=== PATIENT | female | born 1980 | race Caucasian/White ===

== ENCOUNTER 2021-04-05 13:15 | Emergency (ER) | payer BC, SELFPAY ==
[2021-04-05] VITALS (101 sets, daily range): BP systolic 122–171; BP diastolic 63–108; PULSE 86–115; RESP 14–36; TEMP 37.3; O2SAT 93–99; BMI 41.5
--- NOTE | 2021-04-05 | DI.RAD.S_ITS ---
PROCEDURE: XR ANKLE LT 2V INDICATIONS: POST REDUCTION TECHNIQUE: 3 views of the ankle were acquired. COMPARISON: [facility], CR, XR ANKLE LT 2V, 04/05/2021, 16:09. FINDINGS: Bones: Comminuted distal fibular fracture shows improved alignment in overlying plaster cast. Soft tissues: No tibiotalar joint effusion. Achilles tendon appears normal. IMPRESSION: Comminuted distal fibular fracture shows improved alignment in plaster cast Dictated by: Logan Jovel M.D. on 04/05/2021 at 18:26 Approved by: Logan Jovel M.D. on 04/05/2021 at 18:27
--- NOTE | 2021-04-05 13:21 | ED.EXTPRO ---
HPI - Extremity Problem General Chief complaint: Extremity Injury, Lower Stated complaint: GLF, L lower leg deformity Time Seen by Provider: 04/05/21 13:20 History of Present Illness HPI Narrative: This is a 40-year-old female who comes to the emergency department with complaint of fall. Patient [place] [facility] [place] stepped on a rock and felt immediate pain and deformity. Patient denies any numbness or tingling but is very uncomfortable in the ankle with deformity. Patient denies any other injury. She denies any medical issues besides a history of hypertension. She states she is not good about taking her medication daily and for got a dose today. Patient denies any other major surgical history besides . She denies any allergies to medications. She had coffee and a race crispy treat this morning. She has not had anything else to eat or drink today. Patient was transported here via EMS. Related Data Previous Rx's Medication Instructions Recorded hydrocodone 5 mg-acetaminophen 325 1 tab PO Q6H PRN #14 tab 04/05/21 mg tablet Allergies Allergy/AdvReac Type Severity Reaction Status Date / Time No Known Drug Allergies Allergy Verified 04/05/21 13:23 Review of Systems Review of Systems ROS Unobtainable: All systems reviewed & are unremarkable except as noted in HPI and below Patient History Medical History (Updated 04/05/21 @ 19:12 by Isabela Cuevas DO) Hypertension Social History Smoking Status: Never smoker Exam Narrative Exam Narrative: GENERAL: Alert and oriented x three, female in [id number]-ag-[id number] distress. HEENT: Head normocephalic, atraumatic, EOMI, pupils reactive, face symmetric, moist mucous membranes NECK: Supple, full range of motion CARDIOVASCULAR: Regular rate and rhythm without murmurs, rubs or gallops. RESPIRATORY: Breath sounds equal bilaterally, no wheezes rales or rhonchi. ABDOMEN: Soft, nontender. Normoactive bowel sounds all 4 quadrants. No guarding or rebound, rigidity, no mass : No CVA tenderness EXTREMITIES: Normal range of motion, no clubbing or edema of the right leg. Patient's left leg she has normal range of motion of the hip and knee but has obvious deformity with rotation at the left ankle, patient also has ecchymoses present. No laceration or wounds appreciated. Patient does have pulses present bilaterally which are equal. She has sensation to light touch. She has movement of her toes. Neurovascularly intact. NEUROLOGICAL: Cranial nerves II through XII grossly intact. Moving all extremities SKIN: Warm, dry, no petechiae, no rashes or lesions. Initial Vital Signs Initial Vital Signs: Vital Signs Temperature 99.1 F 04/05/21 13:23 Pulse Rate 94 H 04/05/21 13:23 Respiratory Rate 16 04/05/21 13:23 Blood Pressure 145/82 H 04/05/21 13:23 Pulse Oximetry 98 04/05/21 13:23 Procedures Orthopedic Fracture Reduction Fracture #1: Time Out Performed: Yes Side: left Fracture Reduction Location: tibia and fibula Analgesia: procedural sedation Technique: direct manipulation Post Reduction X-rays Demonstrate: other (partial improved.) Post-reduction neuro exam: intact Post-reduction vascular exam: intact Splint Applied: Yes Patient Tolerated Procedure: Well Additional Comments: Patient reduction improved but no to completion. Patient case discussed with Dr. Blas who came and saw patient in the department, repeated sedation with RT and reduction. Patient was improved after this adequately. Procedural Sedation Consent signed: Yes Time out performed: Yes Indication: fracture/dislocation reduction ASA Class: I Mallampati Airway Classification: Class II Time of Last PO Intake: 10:00 Ketamine: IV Ketamine dose (mg): 115 IV Propofol dose (mg): 150 ED Sedation Level: Moderate (Concious) Patient Tolerated Procedure: Well Complications: none Additional Comments: Patient had attempted reduction with IV propofol initially, patient was mildly sedated. Did not have adequate reduction and was sedated a 2nd time with ketamine. Patient had a much improved adduction with moderate sedation attempted reduction is again. Course Orders Ordered: ED Orders 04/05/21 13:20 XR ankle LT 2V Stat XR foot LT 2V Stat 04/05/21 15:05 Urine Microscopic Stat 04/05/21 15:55 COVID19 -Nasal swab/Pre-Proc Stat 04/05/21 16:08 XR ankle LT 2V Stat 04/05/21 19:08 CT LE LT wo con Stat Discontinued Medications Hydrocodone Bitart/Acetaminophen (Hydrocodone/Acet 5/325 Tablet) 2 tab PO NOW ONE Stop: 04/05/21 19:09 Last Admin: 04/05/21 19:31 Dose: 2 tab Documented by: BUCKY Hydrocodone Bitart/Acetaminophen (Hydrocodone/Acet 5/325 Prepack) 1 bottle MISC SEEINSTR ONE Stop: 04/05/21 19:51 Last Admin: 04/05/21 19:59 Dose: 1 bottle Documented by: BUCKY Ketamine HCl (Ketamine 500 Mg/5 Ml Inj) 115 mg 1 mg/kg (115 mg) IV NOW ONE Stop: 04/05/21 16:42 Last Admin: 04/05/21 17:00 Dose: 115 mg Documented by: BUCKY Ketamine HCl (Ketamine 500 Mg/5 Ml Inj) 115 mg 1 mg/kg (115 mg) IV NOW ONE Stop: 04/05/21 17:57 Last Admin: 04/05/21 18:56 Dose: 115 mg Documented by: BUCKY Morphine Sulfate (Morphine 4 Mg/Ml Inj) 4 mg IV NOW ONE Stop: 04/05/21 13:29 Last Admin: 04/05/21 13:42 Dose: 4 mg Documented by: BUCKY Propofol (Propofol 200 Mg/20 Ml Vial) 50 mg IV NOW ONE Stop: 04/05/21 15:51 Last Admin: 04/05/21 17:19 Dose: Not Given Documented by: BUCKY Propofol (Propofol 200 Mg/20 Ml Vial) 150 mg IV NOW ONE Stop: 04/05/21 16:18 Last Admin: 04/05/21 16:17 Dose: 150 mg Documented by: BUCKY Consultations Consultation #1: Dr. Blas, films were reviewed patient had 2 attempted reductions with improvement but not what I feel to be adequate improvement. He reviewed patient's films and feels the same. Dr. Blas came into the department evaluated patient and conscious sedation was a poor performed and he reduced patients ankle again and patient had adequate reduction. Plan for CT to have be available for further evaluation. Vital Signs Vital signs: Vital Signs - 8 hr 04/05/21 14:00 04/05/21 14:01 04/05/21 14:30 Pulse Rate 91 H 90 92 H Respiratory Rate Blood Pressure 161/72 H 154/74 H Blood Pressure [Right Arm] Pulse Oximetry 98 98 99 04/05/21 15:46 04/05/21 15:50 04/05/21 15:55 Pulse Rate 100 H 104 H 94 H Respiratory Rate Blood Pressure 131/63 129/65 131/65 Blood Pressure [Right Arm] Pulse Oximetry 97 95 95 04/05/21 16:00 04/05/21 16:19 04/05/21 16:20 Pulse Rate 102 H 102 H 102 H Respiratory Rate 16 Blood Pressure 144/94 H Blood Pressure [Right Arm] 144/94 H Pulse Oximetry 96 96 99 04/05/21 16:21 04/05/21 16:25 04/05/21 16:28 Pulse Rate 102 H 93 H 96 H Respiratory Rate Blood Pressure 134/73 123/64 122/78 Blood Pressure [Right Arm] Pulse Oximetry 95 96 96 04/05/21 16:30 04/05/21 16:32 04/05/21 16:33 Pulse Rate 90 91 H 94 H Respiratory Rate Blood Pressure 128/69 128/76 Blood Pressure [Right Arm] Pulse Oximetry 97 96 96 04/05/21 16:34 04/05/21 16:36 04/05/21 16:38 Pulse Rate 91 H 91 H 91 H Respiratory Rate Blood Pressure 142/108 H Blood Pressure [Right Arm] Pulse Oximetry 96 96 97 04/05/21 16:40 04/05/21 16:41 04/05/21 16:42 Pulse Rate 100 H 91 H 92 H Respiratory Rate Blood Pressure 137/68 Blood Pressure [Right Arm] Pulse Oximetry 96 97 97 04/05/21 16:44 04/05/21 16:46 04/05/21 17:00 Pulse Rate 94 H 92 H 101 H Respiratory Rate 17 Blood Pressure 162/86 H Blood Pressure [Right Arm] Pulse Oximetry 96 97 98 04/05/21 17:02 04/05/21 17:04 04/05/21 17:06 Pulse Rate 106 H 112 H 115 H Respiratory Rate 21 21 20 Blood Pressure 158/71 H 160/85 H Blood Pressure [Right Arm] Pulse Oximetry 96 94 94 04/05/21 17:08 04/05/21 17:10 04/05/21 17:12 Pulse Rate 111 H 104 H 102 H Respiratory Rate 20 20 21 Blood Pressure 157/79 H 160/80 H Blood Pressure [Right Arm] Pulse Oximetry 95 95 95 04/05/21 17:14 04/05/21 17:16 04/05/21 17:18 Pulse Rate 98 H 95 H 94 H Respiratory Rate 18 15 17 Blood Pressure 162/77 H 171/79 H Blood Pressure [Right Arm] Pulse Oximetry 96 97 95 04/05/21 17:20 04/05/21 17:22 04/05/21 17:24 Pulse Rate 90 92 H 91 H Respiratory Rate 15 18 18 Blood Pressure 157/75 H Blood Pressure [Right Arm] Pulse Oximetry 96 95 95 04/05/21 17:25 04/05/21 17:26 04/05/21 17:28 Pulse Rate 92 H 92 H 89 Respiratory Rate 19 24 Blood Pressure 151/72 H Blood Pressure [Right Arm] Pulse Oximetry 94 95 97 04/05/21 17:30 04/05/21 17:32 04/05/21 17:34 Pulse Rate 86 88 86 Respiratory Rate 18 20 Blood Pressure 155/77 H 159/82 H Blood Pressure [Right Arm] Pulse Oximetry 96 97 97 04/05/21 17:36 04/05/21 17:38 04/05/21 17:40 Pulse Rate 90 95 H 92 H Respiratory Rate Blood Pressure Blood Pressure [Right Arm] Pulse Oximetry 96 97 97 04/05/21 17:42 04/05/21 17:44 04/05/21 17:45 Pulse Rate 92 H 92 H 95 H Respiratory Rate Blood Pressure 148/90 H Blood Pressure [Right Arm] Pulse Oximetry 97 96 97 04/05/21 17:46 04/05/21 17:48 04/05/21 17:50 Pulse Rate 91 H 91 H Respiratory Rate 21 Blood Pressure 160/80 H 165/74 H Blood Pressure [Right Arm] Pulse Oximetry 97 04/05/21 17:54 04/05/21 17:56 04/05/21 17:58 Pulse Rate 96 H 94 H 96 H Respiratory Rate 16 18 24 Blood Pressure 158/76 H Blood Pressure [Right Arm] Pulse Oximetry 96 97 96 04/05/21 18:00 04/05/21 18:02 04/05/21 18:04 Pulse Rate 97 H 95 H 98 H Respiratory Rate 19 20 23 Blood Pressure 148/79 H 165/75 H Blood Pressure [Right Arm] Pulse Oximetry 97 97 98 04/05/21 18:06 04/05/21 18:08 04/05/21 18:10 Pulse Rate 94 H 93 H 93 H Respiratory Rate 17 22 16 Blood Pressure Blood Pressure [Right Arm] Pulse Oximetry 97 96 97 04/05/21 18:12 04/05/21 18:14 04/05/21 18:16 Pulse Rate 95 H 94 H 91 H Respiratory Rate 18 18 21 Blood Pressure Blood Pressure [Right Arm] Pulse Oximetry 97 96 96 04/05/21 18:18 04/05/21 18:20 04/05/21 18:22 Pulse Rate 93 H 92 H 93 H Respiratory Rate 22 23 19 Blood Pressure Blood Pressure [Right Arm] Pulse Oximetry 96 98 97 04/05/21 18:24 04/05/21 18:26 04/05/21 18:28 Pulse Rate 88 92 H 92 H Respiratory Rate 23 18 Blood Pressure Blood Pressure [Right Arm] Pulse Oximetry 96 96 97 04/05/21 18:30 04/05/21 18:32 04/05/21 18:34 Pulse Rate 89 95 H 96 H Respiratory Rate 26 H 21 20 Blood Pressure Blood Pressure [Right Arm] Pulse Oximetry 96 97 97 04/05/21 18:36 04/05/21 18:38 04/05/21 18:40 Pulse Rate 97 H 106 H 97 H Respiratory Rate 20 36 H 19 Blood Pressure 158/74 H Blood Pressure [Right Arm] Pulse Oximetry 97 97 98 04/05/21 18:42 04/05/21 18:44 04/05/21 18:45 Pulse Rate 101 H 109 H 98 H Respiratory Rate 21 24 16 Blood Pressure 165/79 H Blood Pressure [Right Arm] Pulse Oximetry 99 96 04/05/21 18:46 04/05/21 18:48 04/05/21 18:50 Pulse Rate 111 H 114 H 109 H Respiratory Rate 23 24 23 Blood Pressure 148/76 H Blood Pressure [Right Arm] Pulse Oximetry 98 97 97 04/05/21 18:52 04/05/21 18:54 04/05/21 18:56 Pulse Rate 105 H 101 H 99 H Respiratory Rate 22 20 22 Blood Pressure 160/80 H 163/79 H Blood Pressure [Right Arm] Pulse Oximetry 96 98 98 04/05/21 18:58 04/05/21 19:00 04/05/21 19:02 Pulse Rate 97 H 97 H 94 H Respiratory Rate 21 17 19 Blood Pressure 158/74 H Blood Pressure [Right Arm] Pulse Oximetry 99 99 97 04/05/21 19:03 04/05/21 19:04 04/05/21 19:06 Pulse Rate 94 H 92 H 91 H Respiratory Rate 18 14 18 Blood Pressure 163/79 H Blood Pressure [Right Arm] Pulse Oximetry 98 98 96 04/05/21 19:08 04/05/21 19:15 04/05/21 19:16 Pulse Rate 92 H 93 H 91 H Respiratory Rate 17 16 16 Blood Pressure 155/81 H Blood Pressure [Right Arm] Pulse Oximetry 97 96 96 04/05/21 19:30 04/05/21 19:31 04/05/21 19:45 Pulse Rate 96 H 92 H 87 Respiratory Rate Blood Pressure 158/86 H 152/81 H Blood Pressure [Right Arm] Pulse Oximetry 96 95 93 04/05/21 20:00 Pulse Rate 94 H Respiratory Rate Blood Pressure 148/80 H Blood Pressure [Right Arm] Pulse Oximetry 94 MDM - Extremity (Nontraumatic) Lab Data Labs: Lab Results 04/05/21 04/05/21 Range/Units 15:05 15:55 Urine RBC None seen (0-5/HPF) Urine WBC 5-10/hpf H (0-5/HPF) Ur Squamous Epith Cells 10-30 /hpf H (0-5/HPF) Amorphous Sediment 3+ Urine Bacteria None seen (None) Ur Culture Indicated? Cult not indicated Micro UA Comment Qns spin SARS-CoV-2 (PCR) Negative (Negative) Point of Care Testing Test Results Not applicable Urine Dip Bedside Urine Glucose Negative Bedside Urine Bilirubin - Negative Bedside Urine Ketone - Negative Urine Specific [place] 1.015 Bedside Urine Occult Blood +++ Bedside Urine pH 6.5 Bedside Urine Protein +/- 15 Bedside Urine Urobilinogen - Negative Bedside Urine Nitrite + Positive Bedside Urine Leukocytes - Negative Esterase Imaging Data Extremity x-ray #1: Radiologist's Impression: [address] [id number] ReportSigned Patient: Kandice Mahajan#: [id number]: 1980Acct:[id number]/Sex: 40 / FDate of Service: 04/05/21Loc: EDAccession Number: [id number] Procedure: XR ankle LT 2V Ordering Provider: Isabela Cuevas D.O. PROCEDURE: XR ANKLE LT 2V INDICATIONS: deformity, fall, TECHNIQUE: 2 views of the ankle were acquired. COMPARISON: [facility], CR, XR FOOT LT 2V, 04/05/2021, 13:38. FINDINGS: Bones: There is a prominently displaced fracture of the distal fibula. There is a moderately displaced fracture of the posterior malleolus. The talus is dislocated posteriorly in relation to the distal tibia. A plantar calcaneal spur is seen. Soft tissues: Soft tissue swelling is seen. IMPRESSION: Severe left ankle fracture/dislocation. Dictated by: Gabriel Hook M.D. on 04/05/2021 at 13:11 Approved by: Gabriel Hook M.D. on 04/05/2021 at 13:12 Extremity x-ray #2: Radiologist's Impression: [address] [id number] ReportSigned Patient: Kandice Mahajan#: [id number]: 1980Acct:[id number]/Sex: 40 / FDate of Service: 04/05/21Loc: EDAccession Number: [id number] Procedure: XR foot LT 2V Ordering Provider: Isabela Cuevas D.O. PROCEDURE: XR FOOT LT 2V INDICATIONS: deformity, fall, TECHNIQUE: 2 views of the foot were acquired. COMPARISON: [facility], , XR ANKLE LT 2V, 04/05/2021, 13:38. FINDINGS: Bones: There is a distal fibular fracture seen, with moderate to prominent displacement. A moderately displaced posterior malleolar fracture is seen. The talus is dislocated posteriorly in relation to the distal tibia. No fractures of the foot can be seen. Soft tissues: Soft tissue swelling is seen. IMPRESSION: Prominent ankle fracture/dislocation. Dictated by: Gabriel Hook M.D. on 04/05/2021 at 13:12 Approved by: Gabriel Hook M.D. on 04/05/2021 at 13:13 Extremity x-ray #3: Radiologist's Impression: Margaret Alonso 40 F [address] [id number] ReportSigned Patient: Kandice Alonso#: [id number]: 1980Acct:[id number]/Sex: 40 / FDate of Service: 04/05/21Loc: EDAccession Number: [id number] Procedure: XR ankle LT 2V Ordering Provider: Isabela Cuevas D.O. PROCEDURE: XR ANKLE LT 2V INDICATIONS: post-reduc TECHNIQUE: 3 views of the ankle were acquired. COMPARISON: [facility], CR, XR ANKLE LT 2V, 04/05/2021, 13:38. FINDINGS: Bones: Status post interval splinting of previously described comminuted fracture of the distal left tibia and fibula. Improved alignment of posterior malleolar fracture. Comminuted distal fibular fracture fragments are in improved alignment. There is persistent posterior and lateral angulation of the distal fracture fragments of the left fibula. Remainder of the imaged osseous structures appear stable in appearance. Small plantar calcaneal spur. Soft tissues: No visible tibiotalar joint effusion. Achilles tendon shadow is obscured by overlying splint material. IMPRESSION: Status post close reduction and splinting of known comminuted left ankle fracture/dislocation in improved alignment. Dictated by: Vega Francis M.D. on 04/05/2021 at 17:50 Approved by: Vega Francis M.D. on 04/05/2021 at 17:52 MDM Narrative Medical decision making narrative: This is a 40-year-old female comes emergency department with fracture dislocation of her left ankle. Patient was sedated had reduction but not adequate improvement and was not able to maintain with splinting. Orthopedic surgery was consulted who came to the department and kindly reduce the patient once more with more adequate alignment. CT was obtained in order to help facilitate surgical care. Patient discharged home with follow-up with orthopedic surgery within the week. Pain medication on return precautions. All questions were answered. Patient tolerated her medications well. Discharge Plan Departure Patient Disposition: Home Clinical Impression: Ankle fracture Qualifiers: Encounter type: initial encounter Fracture type: closed Laterality: left Qualified Code(s): S82.892A - Other fracture of left lower leg, initial encounter for closed fracture Instructions: DI for Ankle Fracture Activity Restrictions/Additional Instructions: Follow-up with orthopedic surgery within a week. Call for an appointment tomorrow. Referral is included below. Nonweightbearing until cleared by Orthopedic surgery. Take pain medication as prescribed. This medication can make you sleepy do not drive, perform hazardous activities or make any major decisions while taking it. This medication will make you constipated please take a stool softener once to twice daily until stools are soft and regular. Prescription sent to [facility] in [place] Splint Care: Keep splint clean and dry. Elevated affected body part to decrease swelling. OK to use ice pack on the affected body part. Use for 15-20 minutes each time, for 5-6x per day. If you develop worsening pain, numbness, tingling, discoloration of the affected body part, loosen the splint by loosening the ROSA wrap, and either see your doctor for an urgent re-assessment, or return to the Emergency Department. Return to the Emergency Department for any new or worsening symptoms. Severe headaches, passing out, new chest pain shortness of breath, persistent vomiting, new numbness tingling or weakness or other changes. Prescriptions: New hydrocodone-acetaminophen 5-325 mg tablet 1 tab PO Q6H PRN (Reason: pain) Qty: 14 RF: 0 Referrals: Roel Blas MD [Physician] -
[2021-04-05] MEDS: MORPHINE 4 MG/ML INJ IV (13:42)
[2021-04-05 15:07] LABS: Bacteria Urine None Seen; RBC Urine None Seen (0-5/HPF)
[2021-04-05 15:13] LABS: Amorphous Sediment Urine 3+; Culture Indicated Urine Cult Not Indicated; Squamous Epithelial Cell Urine 10-30 /HPF (0-5/HPF); Urine Comments QNS SPIN; WBC Urine 5-10/HPF (0-5/HPF)
[2021-04-05 15:28] LABS: COVID19 -Nasal RAPID Negative (Negative)
--- NOTE | 2021-04-05 16:08 | DI.RAD.S_ITS ---
PROCEDURE: XR ANKLE LT 2V INDICATIONS: post-reduc TECHNIQUE: 3 views of the ankle were acquired. COMPARISON: [facility], CR, XR ANKLE LT 2V, 04/05/2021, 13:38. FINDINGS: Bones: Status post interval splinting of previously described comminuted fracture of the distal left tibia and fibula. Improved alignment of posterior malleolar fracture. Comminuted distal fibular fracture fragments are in improved alignment. There is persistent posterior and lateral angulation of the distal fracture fragments of the left fibula. Remainder of the imaged osseous structures appear stable in appearance. Small plantar calcaneal spur. Soft tissues: No visible tibiotalar joint effusion. Achilles tendon shadow is obscured by overlying splint material. IMPRESSION: Status post close reduction and splinting of known comminuted left ankle fracture/dislocation in improved alignment. Dictated by: Vega Francis M.D. on 04/05/2021 at 17:50 Approved by: Vega Francis M.D. on 04/05/2021 at 17:52
[2021-04-05] MEDS: propofoL 200 MG/20 ML VIAL 150 MG IV (16:17)
[2021-04-05] MEDS: KETAMINE 500 MG/5 ML INJ 115 MG IV ×2 (17:00→18:56)
--- NOTE | 2021-04-05 18:33 | P.CONS_ITS ---
History of Present Illness Consult details Date Patient Seen: 04/05/21 Time Patient Seen: 18:33 Chief complaint: GLF, L lower leg deformity Reason for consult: left ankle fracture dislocation Narrative: Patient is a 40 yo F who was at [place] this evening. [place] the beach when she stepped on a large flat slick rock and had a fracture dislocation of her left ankle. She was unable to ambualte after ross. She was taken to ER. She denies trauma to any other part of her body. Denies previous ankle fractures. No loss of conciousness. ER attempted a closed reduction however the talus remained dislocated. Meds Home Medications and Allergies Home Medications Medication Instructions Recorded Confirmed Type hydrocodone 5 mg-acetaminophen 325 1 tab PO Q6H PRN #14 tab 04/05/21 Rx mg tablet Allergies Allergy/AdvReac Type Severity Reaction Status Date / Time No Known Drug Allergies Allergy Verified 04/05/21 13:23 Review of Systems Review of Systems Narrative: Negative except per HPI Exam Vital Signs (past 8 hours): - 04/05/21 13:23 04/05/21 13:26 04/05/21 13:30 Temperature 99.1 F Pulse Rate 94 H 99 H 95 H Respiratory Rate 16 Blood Pressure 145/82 H Blood Pressure [Right Arm] Pulse Oximetry 98 98 98 04/05/21 13:31 04/05/21 14:00 04/05/21 14:01 Temperature Pulse Rate 90 91 H 90 Respiratory Rate Blood Pressure 148/74 H 161/72 H Blood Pressure [Right Arm] Pulse Oximetry 98 98 98 04/05/21 14:30 04/05/21 15:46 04/05/21 15:50 Temperature Pulse Rate 92 H 100 H 104 H Respiratory Rate Blood Pressure 154/74 H 131/63 129/65 Blood Pressure [Right Arm] Pulse Oximetry 99 97 95 04/05/21 15:55 04/05/21 16:00 04/05/21 16:19 Temperature Pulse Rate 94 H 102 H 102 H Respiratory Rate Blood Pressure 131/65 144/94 H Blood Pressure [Right Arm] Pulse Oximetry 95 96 96 04/05/21 16:20 04/05/21 16:21 04/05/21 16:25 Temperature Pulse Rate 102 H 102 H 93 H Respiratory Rate 16 Blood Pressure 134/73 123/64 Blood Pressure [Right Arm] 144/94 H Pulse Oximetry 99 95 96 04/05/21 16:28 04/05/21 16:30 04/05/21 16:32 Temperature Pulse Rate 96 H 90 91 H Respiratory Rate Blood Pressure 122/78 128/69 Blood Pressure [Right Arm] Pulse Oximetry 96 97 96 04/05/21 16:33 04/05/21 16:34 04/05/21 16:36 Temperature Pulse Rate 94 H 91 H 91 H Respiratory Rate Blood Pressure 128/76 142/108 H Blood Pressure [Right Arm] Pulse Oximetry 96 96 96 04/05/21 16:38 04/05/21 16:40 04/05/21 16:41 Temperature Pulse Rate 91 H 100 H 91 H Respiratory Rate Blood Pressure 137/68 Blood Pressure [Right Arm] Pulse Oximetry 97 96 97 04/05/21 16:42 04/05/21 16:44 04/05/21 16:46 Temperature Pulse Rate 92 H 94 H 92 H Respiratory Rate Blood Pressure Blood Pressure [Right Arm] Pulse Oximetry 97 96 97 04/05/21 17:00 04/05/21 17:02 04/05/21 17:04 Temperature Pulse Rate 101 H 106 H 112 H Respiratory Rate 17 21 21 Blood Pressure 162/86 H 158/71 H Blood Pressure [Right Arm] Pulse Oximetry 98 96 94 04/05/21 17:06 04/05/21 17:08 04/05/21 17:10 Temperature Pulse Rate 115 H 111 H 104 H Respiratory Rate 20 20 20 Blood Pressure 160/85 H 157/79 H Blood Pressure [Right Arm] Pulse Oximetry 94 95 95 04/05/21 17:12 04/05/21 17:14 04/05/21 17:16 Temperature Pulse Rate 102 H 98 H 95 H Respiratory Rate 21 18 15 Blood Pressure 160/80 H 162/77 H Blood Pressure [Right Arm] Pulse Oximetry 95 96 97 04/05/21 17:18 04/05/21 17:20 04/05/21 17:22 Temperature Pulse Rate 94 H 90 92 H Respiratory Rate 17 15 18 Blood Pressure 171/79 H 157/75 H Blood Pressure [Right Arm] Pulse Oximetry 95 96 95 04/05/21 17:24 04/05/21 17:25 04/05/21 17:26 Temperature Pulse Rate 91 H 92 H 92 H Respiratory Rate 18 19 24 Blood Pressure 151/72 H Blood Pressure [Right Arm] Pulse Oximetry 95 94 95 04/05/21 17:28 04/05/21 17:30 04/05/21 17:32 Temperature Pulse Rate 89 86 88 Respiratory Rate 18 Blood Pressure 155/77 H Blood Pressure [Right Arm] Pulse Oximetry 97 96 97 04/05/21 17:34 04/05/21 17:36 04/05/21 17:38 Temperature Pulse Rate 86 90 95 H Respiratory Rate 20 Blood Pressure 159/82 H Blood Pressure [Right Arm] Pulse Oximetry 97 96 97 04/05/21 17:40 04/05/21 17:42 04/05/21 17:44 Temperature Pulse Rate 92 H 92 H 92 H Respiratory Rate Blood Pressure Blood Pressure [Right Arm] Pulse Oximetry 97 97 96 04/05/21 17:45 Temperature Pulse Rate 95 H Respiratory Rate Blood Pressure 148/90 H Blood Pressure [Right Arm] Pulse Oximetry 97 Oxygen Delivery Method Room Air Narrative Exam Narrative: NV intact in the LLE. Ecchymosis over the medial and lateral aspect of the ankle. No skin breaks. Sensation intact to toes. Objective Imaging Ankle films: My impression: Fracture dislocation of the left ankle.Trimalleolar fracture with large intercally segment at the lateral malleolus fracture site. Talus remains subluxated posteriorly. ankle x-ray: My impression: Ankle films: s/p closed reduction and splinting. Talus is well centered under tibial plafond. Trimalleolar nakle fracture with small <25% of articualr surface posterior malleolus fracture. Acceptable alignment. Labs Labs: Laboratory Results - last 24 hr 04/05/21 04/05/21 15:05 15:55 Urine RBC None seen Urine WBC 5-10/hpf H Ur Squamous Epith Cells 10-30 /hpf H Amorphous Sediment 3+ Urine Bacteria None seen Ur Culture Indicated? Cult not indicated Micro UA Comment Qns spin SARS-CoV-2 (PCR) Negative Assessment & Plan Assessment & Plan narrative: Patient is a 40 yo F who sustained a trimalleolar ankle fracture dislocation today [place] the [place]. She was seen at ED. Initial closed reduction attempt by ED was unsuccessful. Orthopaedics subsequently closed reduced and splinted her left trimalleolar ankle fracture dislocation. - NWB LLE - Elevate and ICE to control swelling - Keep splint c/d/i - Follow up Orthopaedics within 1 week Time Spent With Patient Time with patient: Greater than 35 minutes
--- NOTE | 2021-04-05 19:08 | DI.CT.S_ITS ---
PROCEDURE: CT LE LT W CON INDICATIONS: ankle fracture TECHNIQUE: Noncontrast 1-1.5 mm axial sections acquired from above the tibiotalar joint to the bottom of the calcaneus, with coronal and sagittal reformats. COMPARISON: [facility], CR, XR ANKLE LT 2V, 04/05/2021, 18:44. FINDINGS: Image quality: Excellent. There are comminuted fractures involving the posterior malleolus with minimal retraction of the distal fracture fragments. There is also a mildly displaced fracture of the medial malleolus. Mildly comminuted fracture of the distal fibula/lateral malleolus with impaction of the distal fracture fragment. The distal syndesmosis appears to be maintained. Overall ankle mortise is also preserved. No evidence for talar dome fractures. Small plantar calcaneal spur. Visualized tarsal, metatarsal, and phalanges appear intact and of normal alignment. Moderate overlying soft tissue edema. No organized fluid collection seen. IMPRESSION: Complex left ankle fracture involving the posterior malleolus, medial malleolus, and lateral malleolus as described above. Dictated by: Vega Francis M.D. on 04/05/2021 at 21:00 Approved by: Vega Francis M.D. on 04/05/2021 at 21:02
[2021-04-05] MEDS: HYDROCODONE/ACET 5/325 TABLET 2 TAB PO (19:31)
[2021-04-05] MEDS: HYDROCODONE/ACET 5/325 PREPACK 1 BOTTLE MISC (19:59)
== END 2021-04-05 20:26 | disposition home or self-care (01) ==
PROVIDERS: Emergency Provider Emergency Medicine
DX: S82.892A Other fracture of left lower leg, initial encounter for closed fracture (principal); W19.XXXA Unspecified fall, initial encounter
CPT/HCPCS: 27752; 73600; 73620; 73700; 81003; 81015; 87635; 96374; 99152; 99153; 99284; 99285; C9803; J2270; J2704

== ENCOUNTER → 2021-04-11 14:52 | Outpatient (CLI) | payer BC, SELFPAY ==
[2021-04-11 16:26] LABS: COVID19 -Nasal RAPID Negative (Negative)
== END ==
PROVIDERS: Visit Provider Student in an Organized Health Care Education/Training Program
DX: Z01.812 Encounter for preprocedural laboratory examination (principal); Z20.822 Contact with and (suspected) exposure to COVID-19
CPT/HCPCS: 87635

== ENCOUNTER 2021-04-13 12:14 | Day surgery (SDC) | payer BC, SELFPAY ==
[2021-04-13] VITALS (9 sets, daily range): BP systolic 112–145; BP diastolic 50–87; PULSE 91–94; RESP 10–16; TEMP 36.2–36.9; O2SAT 87–98; BMI 41.5
--- NOTE | 2021-04-13 | DI.RAD.S_ITS ---
PROCEDURE: XR ANKLE LT 2V INDICATIONS: LEFT ANKLE ORIF TECHNIQUE: Two intraoperative views of the ankle were acquired. COMPARISON: [facility], , XR ANKLE LT 2V, 04/05/2021, 18:44. FINDINGS: Bones: Two intraoperative views of the left ankle were acquired demonstrating anatomic alignment and fixation hardware in the distal tibia and fibula. Soft tissues: No unexpected radiodense foreign bodies in the soft tissue. IMPRESSION: Intraoperative fluoroscopy for ORIF left ankle. Dictated by: Cynthia Alcantar M.D. on 04/13/2021 at 17:25 Approved by: Cynthia Alcantar M.D. on 04/13/2021 at 17:26
[2021-04-13] MEDS: LACTATED RINGERS 1,000 ML 42 ML IV ×2 (12:47→16:14)
--- NOTE | 2021-04-13 14:17 | SUR.PREOP ---
1404 Pt on O2 at 2LNP and continuous monitoring, medicated by Dr. Collins for nerve block. 1417 Patient awake throughout procedure, VSS, Tolerated well.
[2021-04-13] MEDS: CEFAZOLIN 1 GM VIAL 2 GM IV (14:30)
--- NOTE | 2021-04-13 14:50 | SUR.OPER ---
Supine on padded OR bed, head on pillow, arms secured on padded arm boards at <90 degrees abduction, legs uncrossed, safety belt at thigh, tape over blanket over right lower leg. Left leg on blankets under control of surgeon. Bump under left hip.
[2021-04-13] MEDS: BUPIVACAINE 0.5% (PF) VIAL 30 ML INJ (15:21)
[2021-04-13] MEDS: EPINEPHrine 1 MG/ML 0.15 MG INJ (15:24)
--- NOTE | 2021-04-13 17:49 | SUR.PHASEI ---
1735 - Received to PACU after general anesthesia. Jaw lift being done by Dr Collins. O2 sats 88% - placed on 2LNC with O2 sats up to 94%. Report received from Dr Collins and MAMADOU Mercado. 0069 - No longer requiring jaw lift.
--- NOTE | 2021-04-13 17:54 | PM.OP.1 ---
Operative Date/Time/Diagnoses Date of procedure: 04/13/21 Time of procedure: 17:54 Pre-op diagnosis: Left trimalleolar ankle fracture Post-op diagnosis: same Procedure & Clinicians Procedure: Open reduction internal fixation trimalleolar ankle fracture. Fixation consisted lateral malleolus open reduction internal fixation syndesmotic screw and tension band construct for the medial malleolus fracture. Direct stabilization of the posterior malleolus fragment. Same procedure as scheduled: Yes Indications: Trimalleolar ankle fracture dislocation of left ankle. Surgeon: Roel Blas Click Yes if Unassisted: Yes Anesthesia Type: General Operative Notes Findings: Displaced trimalleolar ankle fracture. Large intercalary segment in the lateral malleolus fracture. Closure Type: primary Specimen(s): none sent Prosthetic devices, grafts, tissues, transplants, or devices: Arthrex 6 hole lateral distal fibular locking plate 1x 40 mm 4-0 cancellous syndesmotic screw 1x 24 mm 4-0 cancellous tension band post 2x .045 threaded tip K-wires 20 gauge wire Estimated Blood Loss (mL): 150 Tourniquet time (min): 74 Procedure in detail: Patient was met in the preoperative holding area where the site and side of surgery were marked and MD. informed consent had been reviewed in clinic was also were reviewed in the preoperative holding area. All last minute questions were answered. Patient then brought back to the operating room where she was transferred on the operating room table induced under general anesthesia. A nonsterile tourniquet was placed on left thigh and the left lower extremity then prepped and draped in normal sterile fashion after removal of the splint. A surgical time-out was time-out was performed verifying the site and side of surgery as well as in the patient. The tourniquet was then inflated to 250 mmHg. A longitudinal incision over the lateral malleolus was made in the skin with a 15. Blade followed by scissor and blunt dissection down to the level of the fibula there was a large intercalary segment of bone that was very prominent and almost stripped of soft tissue although there was 1 small area that it was still attached soft tissue. The rest of the lateral malleolus had a large posterior spike and this was able to be read as a reduction read. The fracture gap was gapped open and cleaned of fracture hematoma a [id number] clamp was then used to reduce the large posterior spike into his read. This was held in place with a [id number] clamp and fluoroscopic imaging was obtained to confirm reduction. At this point a 2 7 lag screw was placed from the anterior cortex aiming towards the posterior cortex 1st drilled with a 2 7 mm screw followed by placement of a top hat guide and a 2 0 drill a 20 mm 2.7 mm cortical screw was then placed. The intercalary segment was able to be reduced although there was some comminution and so it was not lagged into place. A 2.7 mm positional screw was placed. This was 24 mm in length. At this point I selected a 6 hole lateral fibular locking plate and screwed in place with the V-tach. Fluoroscopic imaging was obtained to confirm acceptable placement of the plate. Proximal screws were then placed which were 3 5 mm cortical screws this helped to suck the plate down to the bone. The distal locking screws were then placed all 4 were placed. At this point fluoroscopic imaging was brought in to determine where the syndesmotic screw would be placed. The ideal placement for syndesmotic screw would interfere with the lag screw for main reduction so I went proximal 1 hole. This was aimed in place under fluoroscopic guidance and a 400 40 mm cancellous screw was then placed. At this point I then thoroughly irrigated the lateral incision and closed interrupted 0 Vicryl in the deep layer followed by 2 Vicryl in the subcutaneous layer. This point we let down the tourniquet after starting to get venous tourniquet. I then turned my attention the medial side. Skin incision over the medial malleolus was made the skin with a 15. Blade and sharp and blunt dissection was carried down to the level of thumb medial malleolus fracture. Soft tissue was debrided away from the edges of the medial malleolus fracture line to give us good exposure to the fracture. [id number] clamp was then used to reduce the medial malleolus fracture. And 2 0.045 threaded tip K-wires were then placed. I do not think that the fragment was big enough to place a cannulated screw so I used a tension band construct I then moved proximally of the tibia and placed a 24 mm 4-0 cancellous screw with a washer I then used 20 gauge wire in a figure 8 tension band construct I then cut the tips of the K-wires to length bent them and buried them and bone. Fluoroscopic imaging was obtained to confirm that the wire did not intrude into the joint. This point final imaging was obtained which showed adequate reduction and stability of the syndesmosis. I then thoroughly irrigated the medial incision closed with 0 Vicryl deep in 2 Vicryl in subcutaneous layer followed by 3-0 nylons in a vertical mattress fashion on the medial side and then turned back to the lateral side to do 3-0 vertical mattress nylon sutures in the skin layer on this side. Local anesthetic was then infiltrated. Xeroform dressings were then placed followed by sterile dressings followed by a short-leg splint. Post-operative Condition: stable Disposition: PACU Plan for aftercare: Discharge to home when stable from PACU, nonweightbearing left lower extremity, aspirin 81 mg b.i.d. for 6 weeks for DVT prophylaxis.
[2021-04-13] MEDS: ACETAMINOPHEN 325 MG TABLET 975 MG PO (18:09)
--- NOTE | 2021-04-13 18:32 | SUR.PHASEII ---
Discharge instructions reviewed with by MAMADOU Gutierrez.
== END 2021-04-13 18:30 | disposition home or self-care (01) ==
PROVIDERS: Referring Provider Orthopaedic Surgery Adult Reconstructive Orthopaedic Surgery; Visit Provider Orthopaedic Surgery Adult Reconstructive Orthopaedic Surgery
PROC: (CPT 27822; principal; 2021-04-13 13:45)
DX: S82.852A Displaced trimalleolar fracture of left lower leg, initial encounter for closed fracture (principal); W18.30XA Fall on same level, unspecified, initial encounter; Y92.830 Public park as the place of occurrence of the external cause; I10 Essential (primary) hypertension; E66.9 Obesity, unspecified
CPT/HCPCS: 27822; 64450; 73600; 76000; J0171; J0690; J1100; J1170; J2250; J2405; J2704; J3010